=== PATIENT | male | born 1970 | race Caucasian/White ===

== ENCOUNTER 2016-11-16 19:02 | Emergency (ER) | payer MEDICARE ==
[~2016-11-16] VITALS: Ht 177.8 cm; Wt 90.3 kg
[~2016-11-16 19:02] MED LIST: HYDR12.55 PO; LISI-603 PO; METO25TA6 PO
--- NOTE | 2016-11-16 21:06 | NUR ---
Patient discharged to home in stable conditon. Written and verbal after care instructions given. Patient verbalizes understanding of instructions.
== END 2016-11-16 21:07 | disposition home or self-care (01) ==
LOC: ER 19:18
DX: M25.512 Pain in left shoulder (principal); I10 Essential (primary) hypertension; Z98.890 Other specified postprocedural states
CPT/HCPCS: 73200; A4663

== ENCOUNTER 2016-12-09 17:13 | Emergency (ER) | payer MEDICARE ==
[~2016-12-09] VITALS: Ht 177.8 cm; Wt 89.8 kg
[2016-12-09] MEDS ORDERED: HYDR-552 PO (17:27)
[2016-12-09] MEDS ORDERED: NAPR220T66 PO (17:27)
[2016-12-09] MEDS ORDERED: IV NORMAL SALINE 1000 ML BAG IV ONE (18:30)
--- NOTE | 2016-12-09 18:41 | NUR ---
PT IS IN ROOM #2A. DR MASTERSON EVALUATED THE PT.
[2016-12-09 18:50] LABS: BASOPHILS # (AUTO) 0.1 K/uL (0.0-8.0); BASOPHILS % (AUTO) 1.2 % (0.0-2.0); CREATININE 0.9 mg/dL (0.6-1.3); EOSINOPHILS # (AUTO) 0.2 K/uL (0.0-0.7); EOSINOPHILS % (AUTO) 2.9 % (0.0-7.0); HEMATOCRIT 43.4 % (40-50); LYMPHOCYTES # (AUTO) 1.5 K/UL (0.8-4.8); LYMPHOCYTES % (AUTO) 22.1 % (20.5-51.5); MEAN CORPUSCULAR HEMOGLOBIN 30.5 UUG (27.0-31.0); MEAN CORPUSCULAR HGB CONC 35 g/dL (32.0-37.0); MONOCYTES # (AUTO) 0.4 K/UL (0.1-1.30); MONOCYTES % (AUTO) 6.2 % (0.0-11.0); NEUTROPHILS # (AUTO) 4.7 K/UL (1.8-8.9); NEUTROPHILS % (AUTO) 67.6 % (38.5-71.5); PLATELET COUNT (AUTO) 172 K/UL (150-450); POTASSIUM 3.7 mmol/L (3.5-5.1); RED BLOOD CELL COUNT(AUTO) 4.93 MIL/UL (4.7-6.1); WHITE BLOOD COUNT (AUTO) 6.9 K/UL (4.0-11.2)
[2016-12-09 18:57] LABS: BILIRUBIN,DIRECT 0.1 mg/dL (0.0-0.2); BILIRUBIN,TOTAL 0.5 mg/dL (0.2-1.0); TOTAL PROTEIN, SERUM 6.6 g/dL (6.4-8.2)
[2016-12-09 19:16] LABS: *BILIRUBIN,URIN NEGATIVE (NEGATIVE); *BLOOD, URINE NEGATIVE (NEGATIVE); *CLARITY,URINE CLEAR (CLEAR); *COLOR,URINE YELLOW (YELLOW); *KETONES,URINE NEGATIVE (NEGATIVE); *PROTEIN,URINE NEGATIVE (NEGATIVE); *UROBILINOGEN,URINE 0.2 E.U./dl (NORMAL); LEUKOCYTE ESTERASE ,URINE NEGATIVE (NEGATIVE); NITRITE, URINE NEGATIVE (NEGATIVE); PH,URINE 6.5 (5.0-8.0); UGLUCOSE NEGATIVE (NEGATIVE)
--- NOTE | 2016-12-09 19:20 | NUR ---
Received report from EMMA Orozco. Assumed care of pt at this time.
[2016-12-09 19:30] LABS: WBC,URINE NONE SEEN /HPF (0-3)
--- NOTE | 2016-12-09 19:32 | NUR ---
Pt stable for discharge per MD. IV dc'd, catheter intact. Drsg applied, no problems noted to site. Pt given ACI. Pt verbalized understanding of dc instructions. Pt ambulated out of er with steady gait.
[2016-12-09 19:34] VITALS: BP 122/68
== END 2016-12-09 19:34 | disposition home or self-care (01) ==
LOC: ER 17:13
DX: R53.1 Weakness (principal); I10 Essential (primary) hypertension; Z88.8 Allergy status to other drugs, medicaments and biological substances
CPT/HCPCS: 36415; 85025; 85730; A4663; J7030

== ENCOUNTER 2018-05-27 23:21 | Emergency (ER) | payer MEDICARE ==
[~2018-05-27] VITALS: Ht 177.8 cm; Wt 88.5 kg
[~2018-05-27 23:21] MED LIST changes: +HYDR-4384 PO; +NAPR220T66 PO
--- NOTE | 2018-05-27 23:29 | NUR ---
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 c/o 7/10 L side chest pain upon waking. Patien took 162mg ASA at home, then called 911. 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 Currently has c/o 1/10 L side CP. LAC IV 18ga placed my EMS. EKG completed upon arrival to ER. ER MD at bedside.
[2018-05-27] MEDS ORDERED: LISINOP (23:36)
[2018-05-27] MEDS ORDERED: HCTZ (23:36)
--- NOTE | 2018-05-27 23:49 | NUR ---
Xray at bedside
--- NOTE | 2018-05-28 | NUR ---
Patient ambulated with stable gait to the restroom. no acute distress noted. no c/o CP at this time.
[2018-05-28 00:06] LABS: BASOPHILS % (AUTO) 0.6 % (0.0-2.0); EOSINOPHILS % (AUTO) 0.8 % (0.0-7.0); HEMATOCRIT 39.8 % (36.7-47.1); HEMOGLOBIN 14.5 g/dL (12.5-16.3); LYMPHOCYTES # (AUTO) 1.8 K/uL (20.0-40.0); LYMPHOCYTES % (AUTO) 29.4 % (20.5-51.5); MEAN CORPUSCULAR HGB CONC 37 g/dL (32.5-36.3); MEAN CORPUSCULAR VOLUME 87.4 fL (73.0-96.2); MONOCYTES # (AUTO) 0.5 K/uL (2.0-10.0); NEUTROPHILS # (AUTO) 3.7 K/uL (1.8-8.9); NEUTROPHILS % (AUTO) 61.2 % (38.5-71.5); PLATELET COUNT (AUTO) 172 K/uL (152-348); RED BLOOD CELL COUNT(AUTO) 4.55 MIL/uL (4.06-5.63)
[2018-05-28 00:18] LABS: CREATININE 0.9 mg/dL (0.6-1.3)
[2018-05-28 00:31] LABS: BILIRUBIN,DIRECT 0.1 mg/dL (0.0-0.2); BILIRUBIN,TOTAL 0.3 mg/dL (0.2-1.0); TOTAL PROTEIN, SERUM 6.3 g/dL (6.4-8.2)
[2018-05-28] MEDS ORDERED: POTASSIUM BICARBONATE/CIT AC 25 MEQ TABLET.EFF ONE (00:40)
[2018-05-28] MEDS ORDERED: POTASSIUM BICARBONATE/CIT AC 25 MEQ TABLET.EFF PO ONE (00:45)
--- NOTE | 2018-05-28 00:46 | NUR ---
MARCUS MAGANA at bedside for patient update.
--- NOTE | 2018-05-28 01:21 | NUR ---
Patient back from CT. No acute distress noted. VSS. No current c/o chest pain at this time.
[2018-05-28 01:23] LABS: *BILIRUBIN,URIN NEGATIVE (NEGATIVE); *BLOOD, URINE NEGATIVE (NEGATIVE); *CLARITY,URINE CLEAR (CLEAR); *KETONES,URINE NEGATIVE (NEGATIVE); *UROBILINOGEN,URINE 0.2 E.U./dl (NORMAL); LEUKOCYTE ESTERASE ,URINE NEGATIVE (NEGATIVE); NITRITE, URINE NEGATIVE (NEGATIVE); PH,URINE 6.5 (5.0-8.0); UGLUCOSE NEGATIVE (NEGATIVE)
[2018-05-28 01:30] LABS: *COLOR,URINE STRAW (YELLOW); BACTERIA,URINE NONE SEEN /HPF (NONE SEEN); RBC,URINE NONE SEEN /HPF (0-3); SQUAMOUS EPITHELIAL CELL,UR NONE SEEN /HPF (NONE SEEN); WBC,URINE NONE SEEN /HPF (0-3)
--- NOTE | 2018-05-28 01:48 | NUR ---
Patient discharged to home in stable conditon. Written and verbal after care instructions given. Patient verbalizes understanding of instructions. Ambulated from ER with stable gait. All belongings with patient.
[2018-05-28 01:49] VITALS: BP 129/81
== END 2018-05-28 01:51 | disposition home or self-care (01) ==
LOC: ER 23:23
DX: R10.9 Unspecified abdominal pain (principal); I10 Essential (primary) hypertension; Z88.8 Allergy status to other drugs, medicaments and biological substances
CPT/HCPCS: 36415; 70030-TC; 71045; 85025; 85730; 93005; A4663